=== PATIENT | male | born 2000 | race African-American/Black ===

== ENCOUNTER 2021-10-08 13:26 | Emergency (ER) | payer OTHER ==
[2021-10-09 07:40] LABS: SARS-CoV-2 PCR by NAA DETECTED (NotDetected)
== END 2021-10-08 15:18 | disposition home or self-care (01) ==
LOC: CSHERS 13:26
DX: U07.1 COVID-19 (principal); J45.909 Unspecified asthma, uncomplicated
CPT/HCPCS: 87804; 99284; U0003; U0005

== ENCOUNTER 2022-06-26 16:59 | Emergency (ER) | payer OTHER ==
[2022-06-26] MEDS ORDERED: Dexamethasone 10 MG/ML VIAL ONE (17:44)
[2022-06-26] MEDS ORDERED: Ketorolac Tromethamine 30 MG/ML VIAL ONE (17:44)
== END 2022-06-26 18:00 | disposition home or self-care (01) ==
LOC: CSHERS 16:59
DX: R51.9 Headache, unspecified (principal)
CPT/HCPCS: 96372; 99283; J1100; J1885

== ENCOUNTER 2022-08-24 15:31 | Emergency (ER) | payer OTHER | END 2022-08-24 17:27 | disposition home or self-care (01) | LOC: CSHERS 15:31 | DX: S60.052A Contusion of left little finger without damage to nail, initial encounter (principal); W23.0XXA Caught, crushed, jammed, or pinched between moving objects, initial encounter | CPT/HCPCS: 99283 ==

== ENCOUNTER 2022-09-05 09:45 | Emergency (ER) | payer OTHER ==
[2022-09-05] MEDS ORDERED: Sterile Water 10 ML ONE (10:18)
[2022-09-05] MEDS ORDERED: cefTRIAXone\\ROCEPHIN 250 MG VIAL ONE (10:18)
[2022-09-05] MEDS ORDERED: Azithromycin 250 MG TAB ONE (10:19)
[2022-09-05 10:22] LABS: Bilirubin Neg (Negative); Blood, Urine 25 (Negative); Clarity Slightly Cloudy (Clear); Glucose, Urine (Dipstick) Normal (Negative); Ketone, Urine Negative (Negative); Leukocyte 500 (Negative); Nitrite Negative (Negative); Protein, Urine (Dipstick) 15 mg/dl (Neg-Trace); Specific Gravity, Urine 1.015 (1.005-1.030); Urobilinogen Normal mg/dL (Less than 2)
[2022-09-05 10:31] LABS: Bacteria/HPF Rare-Few HPF (None Seen); WBC/HPF Greater than 50 HPF (0-3)
[2022-09-05 19:07] LABS: Chlam.trachomatis by PCR,Urine DETECTED (NotDetected)
== END 2022-09-05 10:54 | disposition home or self-care (01) ==
LOC: CSHERS 09:45
DX: R30.0 Dysuria (principal)
CPT/HCPCS: 81003; 81015; 87491; 87591; 96372; 99283; J0696

== ENCOUNTER 2022-09-30 23:03 | Emergency (ER) | payer OTHER ==
[2022-09-30] MEDS ORDERED: Ketorolac Tromethamine 30 MG/ML VIAL ONE (23:53)
[2022-09-30] MEDS ORDERED: Acetaminophen 500 MG TAB ONE (23:53)
== END 2022-10-01 00:11 | disposition home or self-care (01) ==
LOC: CSHERS 23:03
DX: J11.1 Influenza due to unidentified influenza virus with other respiratory manifestations (principal); Z20.822 Contact with and (suspected) exposure to COVID-19
CPT/HCPCS: 87804; 96372; 99283; J1885; U0003; U0005

== ENCOUNTER 2022-12-16 09:52 | Emergency (ER) | payer OTHER ==
[2022-12-16] MEDS ORDERED: cefTRIAXone\\ROCEPHIN 500 MG VIAL ONE (10:59)
[2022-12-16] MEDS ORDERED: Sterile Water 10 ML ONE (11:01)
[2022-12-16 23:43] LABS: Chlam.trachomatis by PCR,Urine Not Detected (NotDetected); GC N.gonorrhoeae PCR,UrineVOID Not Detected (NotDetected)
== END 2022-12-16 11:19 | disposition home or self-care (01) ==
LOC: CSHERS 09:52
DX: Z20.2 Contact with and (suspected) exposure to infections with a predominantly sexual mode of transmission (principal)
CPT/HCPCS: 87491; 87591; 96372; 99283; J0696

== ENCOUNTER 2023-01-29 18:40 | Emergency (ER) | payer OTHER ==
[2023-01-29] MEDS ORDERED: Dexamethasone 10 MG/ML VIAL ONE (19:22)
== END 2023-01-29 19:52 | disposition home or self-care (01) ==
LOC: CSHERS 18:40
DX: R09.81 Nasal congestion (principal)
CPT/HCPCS: 99283; J1100

== ENCOUNTER 2023-06-03 08:03 | Emergency (ER) | payer OTHER, SELFPAY ==
[2023-06-03] MEDS ORDERED: Ondansetron ODT 4 MG TAB ONE (08:35)
== END 2023-06-03 08:35 | disposition home or self-care (01) ==
LOC: CSHERS 08:03
DX: R11.0 Nausea (principal)
CPT/HCPCS: 99283; Q0162

== ENCOUNTER 2023-07-23 13:03 | Emergency (ER) | payer SELFPAY ==
[2023-07-23] MEDS ORDERED: Ketorolac Tromethamine 30 MG/ML VIAL ONE (14:46)
== END 2023-07-23 14:50 | disposition home or self-care (01) ==
LOC: CSHERS 13:03
DX: M62.838 Other muscle spasm (principal)
CPT/HCPCS: 96372; 99283; J1885

== ENCOUNTER 2023-08-19 16:25 | Emergency (ER) | payer SELFPAY ==
[2023-08-19] MEDS ORDERED: Ibuprofen 200 MG TAB ONE (17:07)
[2023-08-19] MEDS ORDERED: Acetaminophen 500 MG TAB ONE (17:07)
[2023-08-19 17:59] LABS: SARS-CoV-2 NAA Rapid Test Not Detected (NotDetected)
== END 2023-08-19 18:09 | disposition home or self-care (01) ==
LOC: CSHERS 16:25
DX: J06.9 Acute upper respiratory infection, unspecified (principal); Z20.822 Contact with and (suspected) exposure to COVID-19
CPT/HCPCS: 99283

== ENCOUNTER 2024-03-24 09:10 | Emergency (ER) | payer SELFPAY ==
[2024-03-24] MEDS ORDERED: Ibuprofen 200 MG TAB ONE (09:38)
== END 2024-03-24 09:43 | disposition home or self-care (01) ==
LOC: CSHERS 09:10
DX: H00.014 Hordeolum externum left upper eyelid (principal); F17.290 Nicotine dependence, other tobacco product, uncomplicated
CPT/HCPCS: 99282